=== PATIENT | female | born 1955 | race Caucasian/White ===

== ENCOUNTER → 2016-05-22 | Outpatient (REF) | payer OTHER ==
[~2016-05-22] MED LIST: ADV250INH INH; ALBU17IN INH; ALBU83IN INH; ASPI325T PO; ATOR1TAB18 PO; BUSP5TA PO; CLOP75TA2 PO; CYCL10TA PO; LISI10TA4 PO; METO25TAB PO; NEXI40CA PO; NITR4TASL SL; PIRO10CA2 PO; PREM0.3T2 PO; PROA1AER INH; RANI150T PO; SPIR1CAP IN; TRIL135C6 PO
[2016-05-22 17:39] LABS: ALBUMIN 3.7 GM/DL (3.2-5.2); ALBUMIN/GLOBULIN RATIO 1.32 (1.00-1.93); ALKALINE PHOSPHATASE 71 U/L (45-117); ALT/SGPT 17 U/L (12-78); ANION GAP 8 MEQ/L (8-16); AST/SGOT 19 U/L (15-37); BILIRUBIN,TOTAL 0.3 MG/DL (0.2-1.0); BLOOD UREA NITROGEN 13 MG/DL (7-18); CALCIUM LEVEL 8.9 MG/DL (8.8-10.2); CARBON DIOXIDE LEVEL 27 MEQ/L (21-32); CHLORIDE LEVEL 107 MEQ/L (98-107); CHOLESTEROL LEVEL 117 MG/DL (<200); CREATININE FOR GFR 0.77 MG/DL (0.55-1.02); GLOMERULAR FILTRATION RATE > 60.0 (>45); GLUCOSE, FASTING 121 MG/DL (80-110); POTASSIUM SERUM 4.2 MEQ/L (3.5-5.1); SODIUM LEVEL 142 MEQ/L (136-145); TOTAL PROTEIN 6.5 GM/DL (6.4-8.2); TRIGLYCERIDES LEVEL 165 MG/DL (<150)
== END ==
LOC: M SFHCLACO 10:30
PROVIDERS: ATTEND Physician Assistant
DX: I10 Essential (primary) hypertension (principal); E11.9 Type 2 diabetes mellitus without complications; E78.2 Mixed hyperlipidemia

== ENCOUNTER 2016-09-10 16:37 | Emergency (ER) | payer OTHER ==
[~2016-09-10] VITALS: Ht 154.9 cm; Wt 69.8 kg
[~2016-09-10 16:37] MED LIST changes: -ATOR1TAB18 PO; +ATOR80TA59 PO; -PROA1AER INH; +PROAAER10 INH
[2016-09-10] MEDS ORDERED: LIDOCAINE 1% MDV 20ML VIAL SC ONE (18:00)
[2016-09-10 18:48] VITALS: BP 144/71
[2016-09-10] MEDS ORDERED: BACT800T5 PO (18:58)
== END 2016-09-10 19:17 | disposition home or self-care (01) ==
LOC: M ED 16:37
DX: L72.3 Sebaceous cyst (principal); Z72.0 Tobacco use

== ENCOUNTER → 2016-11-22 | Outpatient (REF) | payer OTHER ==
[~2016-11-22] MED LIST changes: +BACT800T5 PO
[2016-11-22 15:19] LABS: ALBUMIN 3.3 GM/DL (3.2-5.2); ALKALINE PHOSPHATASE 79 U/L (45-117); ALT/SGPT 20 U/L (12-78); ANION GAP 4 MEQ/L (8-16); AST/SGOT 19 U/L (15-37); BILIRUBIN,TOTAL 0.3 MG/DL (0.2-1.0); BLOOD UREA NITROGEN 9 MG/DL (7-18); CALCIUM LEVEL 8.5 MG/DL (8.8-10.2); CARBON DIOXIDE LEVEL 30 MEQ/L (21-32); CHLORIDE LEVEL 107 MEQ/L (98-107); CHOLESTEROL LEVEL 113 MG/DL (<200); CREATININE FOR GFR 0.71 MG/DL (0.55-1.02); GLOMERULAR FILTRATION RATE > 60.0 (>45); GLUCOSE, FASTING 149 MG/DL (80-110); POTASSIUM SERUM 4.1 MEQ/L (3.5-5.1); SODIUM LEVEL 141 MEQ/L (136-145); TOTAL PROTEIN 6.6 GM/DL (6.4-8.2); TRIGLYCERIDES LEVEL 158 MG/DL (<150)
== END ==
LOC: M SFHCLACO 09:43
PROVIDERS: ATTEND Physician Assistant
DX: E78.2 Mixed hyperlipidemia (principal); I10 Essential (primary) hypertension; E11.9 Type 2 diabetes mellitus without complications

== ENCOUNTER → 2017-08-08 | Outpatient (REF) | payer OTHER ==
[2017-08-08 15:02] LABS: ESTIMATED AVERAGE GLUCOSE 137 MG/DL (60-110); HEMOGLOBIN A1c 6.4 %
[2017-08-08 15:07] LABS: ALBUMIN 3.7 GM/DL (3.2-5.2); ALBUMIN/GLOBULIN RATIO 1.19 (1.00-1.93); ALKALINE PHOSPHATASE 67 U/L (45-117); ALT/SGPT 19 U/L (12-78); ANION GAP 8 MEQ/L (8-16); AST/SGOT 18 U/L (7-37); BILIRUBIN,TOTAL 0.5 MG/DL (0.2-1.0); BLOOD UREA NITROGEN 11 MG/DL (7-18); CALCIUM LEVEL 8.9 MG/DL (8.8-10.2); CARBON DIOXIDE LEVEL 28 MEQ/L (21-32); CHLORIDE LEVEL 107 MEQ/L (98-107); CHOLESTEROL LEVEL 113 MG/DL (<200); CREATININE FOR GFR 0.83 MG/DL (0.55-1.30); GLOMERULAR FILTRATION RATE > 60.0 (>45); GLUCOSE, FASTING 137 MG/DL (70-100); HDL CHOLESTEROL 25 MG/DL (>40); LDL CHOLESTEROL 51.4 MG/DL (<100); NON-HDL-C 88 MG/DL; POTASSIUM SERUM 4.2 MEQ/L (3.5-5.1); SODIUM LEVEL 143 MEQ/L (136-145); TOTAL PROTEIN 6.8 GM/DL (6.4-8.2); TRIGLYCERIDES LEVEL 183 MG/DL (<150)
== END ==
LOC: M SFHCLACO 10:00
DX: I10 Essential (primary) hypertension (principal); E78.2 Mixed hyperlipidemia; E11.9 Type 2 diabetes mellitus without complications
CPT/HCPCS: 80053

== ENCOUNTER → 2018-06-04 | Outpatient (REF) | payer OTHER ==
[~2018-06-04] MED LIST changes: +ASPI-1 PO; -ASPI325T PO; +METO1TAB63 PO; -METO25TAB PO
[2018-06-04 15:05] LABS: ALBUMIN 3.6 GM/DL (3.2-5.2); ALT/SGPT 17 U/L (12-78); BILIRUBIN,TOTAL 0.7 MG/DL (0.2-1.0); BLOOD UREA NITROGEN 13 MG/DL (7-18); CALCIUM LEVEL 8.6 MG/DL (8.8-10.2); CARBON DIOXIDE LEVEL 22 MEQ/L (21-32); CHLORIDE LEVEL 105 MEQ/L (98-107); CHOLESTEROL LEVEL 92 MG/DL (<200); CREATININE FOR GFR 0.79 MG/DL (0.55-1.30); GLOMERULAR FILTRATION RATE > 60.0 (>45); GLUCOSE, FASTING 108 MG/DL (70-100); HDL CHOLESTEROL 25 MG/DL (>40); LDL CHOLESTEROL 34 MG/DL (<100); NON-HDL-C 67 MG/DL; POTASSIUM SERUM 4.5 MEQ/L (3.5-5.1); SODIUM LEVEL 138 MEQ/L (136-145); TOTAL PROTEIN 6.7 GM/DL (6.4-8.2); TRIGLYCERIDES LEVEL 165 MG/DL (<150)
== END ==
LOC: M SFHCADAM 09:37
PROVIDERS: ATTEND Physician Assistant
DX: I10 Essential (primary) hypertension (principal); E78.2 Mixed hyperlipidemia; E11.9 Type 2 diabetes mellitus without complications

== ENCOUNTER 2018-07-06 19:51 | Inpatient (IN) | payer OTHER ==
[~2018-07-06] VITALS: Ht 152.4 cm; Wt 66.4 kg
[2018-07-06 20:30] LABS: BASO # 0.1 10^3/uL (0.0-0.2); BASO % 0.6 % (0.0-1.0); EOS # 0.1 10^3/uL (0.0-0.50); EOS % 0.6 % (0.0-3.0); HEMATOCRIT 30.3 % (36.0-47.0); HEMOGLOBIN 8.2 g/dl (12.0-15.5); LYMPH # 0.9 10^3/uL (1.5-4.5); LYMPH % 7.7 % (24.0-44.0); MEAN CORPUSCULAR HEMOGLOBIN 18.3 pg (27.0-33.0); MEAN CORPUSCULAR HGB CONC 27.1 g/dl (32.0-36.5); MEAN CORPUSCULAR VOLUME 67.5 fl (80.0-96.0); MONO # 1.4 10^3/uL (0.0-0.8); MONO % 12.1 % (0.0-5.0); NEUTROPHILS # 8.8 10^3/uL (1.8-7.7); NEUTROPHILS % 78.6 % (36.0-66.0); PLATELET COUNT, AUTOMATED 256 10^3/uL (150-450); RED BLOOD COUNT 4.49 10^6/uL (4.00-5.40); VENOUS BASE EXCESS -3.5 (-2.0-2.0); VENOUS HCO3 23.2 MEQ/L (23.0-27.0); VENOUS O2 SATURATION 69.3 % (60.0-80.0); VENOUS PARTIAL PRESSURE CO2 50.1 mmHg (38.0-50.0); VENOUS PARTIAL PRESSURE O2 42.7 mmHg (30.0-50.0); VENOUS PH 7.284 UNITS (7.330-7.430); VENOUS STANDARD HCO3 21.1 MEQ/L; VENOUS TOTAL CO2 24.8 MEQ/L (24.0-28.0); WHITE BLOOD COUNT 11.2 10^3/uL (4.0-10.0)
--- NOTE | 2018-07-06 20:45 | REP ---
Clinical: Cough and dyspnea. Comparison: 07/29/2014. Findings: Mediastinum and cardiac silhouette are normal. Lung hernandez demonstrate chronic changes and superimposed mild bronchitis cannot be excluded. No focal consolidation. No effusion. No pneumothorax. Skeletal structures stable. Impression: Chronic-appearing interstitial changes. Differential diagnosis cannot definitively exclude a mild bronchitis. Electronically Signed by Hao Graham MD 07/06/2018 08:37 P
[2018-07-06 21:00] LABS: ALT/SGPT 23 U/L (12-78); BLOOD UREA NITROGEN 9 MG/DL (7-18); CALCIUM LEVEL 8.1 MG/DL (8.8-10.2); CARBON DIOXIDE LEVEL 27 MEQ/L (21-32); CHLORIDE LEVEL 110 MEQ/L (98-107); CREATININE FOR GFR 0.74 MG/DL (0.55-1.30); GLOMERULAR FILTRATION RATE > 60.0 (>45); GLUCOSE, FASTING 101 MG/DL (70-100); SODIUM LEVEL 142 MEQ/L (136-145)
[2018-07-06] MEDS: busPIRone 5 MG TAB PO SCH (21:00)
[2018-07-06] MEDS: IPRATROPIUM 0.5MG/ALBUTEROL 2.5MG INH SOL UD 3ML (DUONEB)(J7620) NEB SCH ×3 (21:00→21:40)
[2018-07-06] MEDS ORDERED: methylPREDNISolone INJ 125 MG/2 ML VIAL (J2930) IV ONE (21:00)
[2018-07-06 21:01] LABS: ALBUMIN 3.5 GM/DL (3.2-5.2); BILIRUBIN,DIRECT 0.2 MG/DL (0.0-0.2); BILIRUBIN,TOTAL 0.5 MG/DL (0.2-1.0); CPK CREATINE PHOSPHOKINASE 217 U/L (26-192); MB/CK RELATIVE INDEX 1.66 (< OR =4); NT-PRO BNP 140 PG/ML (<125); THYROID STIMULATING HORMONE 0.789 uIU/ML (0.358-3.740); THYROXINE (T4) 12.4 UG/DL (4.5-12.0); TOTAL PROTEIN 6.8 GM/DL (6.4-8.2); TROPONIN I < 0.02 NG/ML (< 0.10)
[2018-07-06] MEDS ORDERED: ISOVUE-370 76% 100ML VIAL (Q9967) As Ordered ONE (21:48)
[2018-07-06] MEDS ORDERED: ACETAMINOPHEN TAB 650MG DOSE (2X325MG) PO ONE (22:15)
--- NOTE | 2018-07-06 22:48 | REPVR ---
EXAM: CT Angiography Chest With Contrast EXAM DATE/TIME: 07/06/2018 10:01 PM CLINICAL HISTORY: 63 years old, female; Signs and symptoms; Shortness of breath; Additional info: SOB, chest pain TECHNIQUE: Imaging protocol: Axial computed tomographic angiography images of the chest with intravenous contrast using CT angiography protocol. Coronal and sagittal reformatted images were created and reviewed. 3D rendering: MIP reconstructed images were created and reviewed. Radiation optimization: All CT scans at this facility use at least one of these dose optimization techniques: automated exposure control; mA and/or kV adjustment per patient size (includes targeted exams where dose is matched to clinical indication); or iterative reconstruction. Contrast material: ISOVUE 370; Contrast volume: 75 ml; Contrast route: IV; COMPARISON: CT Chest with contrast 07/29/2014 5:01 AM FINDINGS: Pulmonary arteries: The main pulmonary artery measures 24 mm. No pulmonary embolism is identified. Aorta: The ascending thoracic aorta measures 33 mm. Lungs: Slight interstitial prominence and minimal patchy bilateral pulmonary infiltrates. Pleural space: Normal. No pneumothorax. No pleural effusion. Heart: Normal. No cardiomegaly. No pericardial effusion. Liver: Anterior hepatic cyst measuring 18 mm with Hounsfield measurement of 4 which is similar to the prior study. Lymph nodes: Mediastinal lymph nodes which are upper normal. Bones/joints: Unremarkable. No acute fracture. Soft tissues: Unremarkable. IMPRESSION: 1. Slight interstitial prominence which is similar to the prior study of 07/29/2014 with minimal patchy bilateral pulmonary infiltrates which are new. 2. Otherwise negative CTA chest. No interval pulmonary embolism is identified. Electronically signed by: Leonel Rivera On 07/06/2018 22:48:04 PM
[2018-07-07] MEDS ORDERED: cefTRIAXone SOD 1 GM in D5W MINI-BAG PLUS 50 ML IV ONE ×2
[2018-07-07] MEDS ORDERED: ACET-683 PO (01:13)
[2018-07-07] MEDS ORDERED: FENO134C PO (01:13)
[2018-07-07] MEDS ORDERED: NAPR500T6 PO (01:13)
[2018-07-07] MEDS ORDERED: OMEP-221 PO (01:13)
[2018-07-07] MEDS ORDERED: NORC1TAB7 PO (01:13)
[2018-07-07] MEDS ORDERED: FISH1000 PO (01:13)
[2018-07-07] MEDS ORDERED: METO25TA4 PO (01:16)
[2018-07-07] MEDS ORDERED: IPRATROPIUM 0.5MG/ALBUTEROL 2.5MG INH SOL UD 3ML (DUONEB)(J7620) NEB PRN (02:00)
[2018-07-07] MEDS ORDERED: AZITHROMYCIN 250 MG TAB PO ONE (02:00)
[2018-07-07 03:10] VITALS: BP 142/80
[2018-07-07] MEDS: FENOFIBRATE 145 MG TAB (TRICOR) PO SCH ×2 (03:30→20:22)
[2018-07-07] MEDS: ATORVASTATIN 20 MG TAB PO SCH ×2 (03:30→20:21)
[2018-07-07] MEDS: CLOPIDOGREL 75 MG TAB PO SCH ×2 (03:31→20:22)
[2018-07-07] MEDS: CYCLOBENZAPRINE 10 MG TAB PO SCH ×2 (03:32→20:22)
[2018-07-07] MEDS: LISINOPRIL 10 MG TAB PO SCH ×2 (03:32→20:23)
[2018-07-07] MEDS: METOPROLOL TART 25 MG TABLET PO SCH ×2 (03:33→20:23)
[2018-07-07] MEDS: ASPIRIN 325 MG TAB PO SCH ×2 (03:43→20:21)
[2018-07-07] MEDS: BUDESONIDE 0.5 MG/2 ML INHALATION SUSPENSION INH SCH ×3 (03:43→19:27)
[2018-07-07] MEDS: ALBUTEROL SULFATE 2.5 MG/0.5 ML INH NEB SOLN NEB SCH ×4 (03:43→19:27)
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
[2018-07-07 05:03] LABS: BASO % 0.3 % (0.0-1.0); HEMATOCRIT 28.7 % (36.0-47.0); HEMOGLOBIN 7.9 g/dl (12.0-15.5); LYMPH # 0.4 10^3/uL (1.5-4.5); LYMPH % 4.4 % (24.0-44.0); MEAN CORPUSCULAR HEMOGLOBIN 18.6 pg (27.0-33.0); MEAN CORPUSCULAR HGB CONC 27.5 g/dl (32.0-36.5); MEAN CORPUSCULAR VOLUME 67.5 fl (80.0-96.0); MONO # 0.2 10^3/uL (0.0-0.8); MONO % 2.1 % (0.0-5.0); NEUTROPHILS # 8.7 10^3/uL (1.8-7.7); NEUTROPHILS % 92.6 % (36.0-66.0); PLATELET COUNT, AUTOMATED 240 10^3/uL (150-450); RED BLOOD COUNT 4.25 10^6/uL (4.00-5.40); WHITE BLOOD COUNT 9.4 10^3/uL (4.0-10.0)
[2018-07-07 05:18] LABS: BLOOD UREA NITROGEN 12 MG/DL (7-18); CARBON DIOXIDE LEVEL 26 MEQ/L (21-32); CHLORIDE LEVEL 111 MEQ/L (98-107); GLOMERULAR FILTRATION RATE > 60.0 (>45); GLUCOSE, FASTING 172 MG/DL (70-100); POTASSIUM SERUM 4.2 MEQ/L (3.5-5.1); SODIUM LEVEL 142 MEQ/L (136-145)
[2018-07-07 05:23] LABS: CPK CREATINE PHOSPHOKINASE 163 U/L (26-192); MB/CK RELATIVE INDEX 1.78 (< OR =4); TROPONIN I < 0.02 NG/ML (< 0.10)
[2018-07-07] MEDS: methylPREDNISolone INJ 40 MG/1 ML VIAL (J2920) IV SCH ×4 (05:52→23:40)
[2018-07-07 07:31] VITALS: BP 101/57
[2018-07-07 07:32] LABS: FERRITIN 5 NG/ML (8-252); IRON (FE) 10 UG/DL (50-170); PERCENT SATURATION 2.3 % (13.2-45.0); TOTAL IRON BINDING CAPACITY 430 UG/DL (250-450); TOTAL PROTEIN 6.5 GM/DL (6.4-8.2)
[2018-07-07] MEDS: NICOTINE 14 MG/24 HR TRANSDERMAL TD SCH ×2 (08:20→12:53)
[2018-07-07] MEDS: OMEPRAZOLE 20 MG CAP PO SCH (08:20)
[2018-07-07] MEDS: busPIRone 5 MG TAB PO SCH ×2 (08:20→20:21)
[2018-07-07] MEDS: ENOXAPARIN 40 MG/0.4 ML SYRINGE (J1650) SC SCH (08:39)
[2018-07-07] MEDS: TIOTROPIUM INHALER/CAPSULE (SPIRIVA) INH SCH (08:48)
[2018-07-07 09:18] LABS: VITAMIN B12 LEVEL 344 PG/ML (247-911)
[2018-07-07 09:19] LABS: FOLATE 3.6 NG/ML (>5.4)
[2018-07-07 11:30] VITALS: BP 136/60
[2018-07-07] MEDS: NORCO, ANEXSIA 5/325MG TABLET (HYDROcodone/ACETAMINOPHEN) PO PRN (12:17)
[2018-07-07 14:00] VITALS: BP 127/63
--- NOTE | 2018-07-07 17:20 | IPNPDOC ---
Text Note Date of Service The patient was seen on 07/07/18. NOTE Subjective: Ms. Henry is seen on bedside rounds this morning. She is still a little SOB, she sounds wheezy on exam. She denies blood in stool, or black stool, no coughing or vomiting up blood. No bleeding from vagina. She has nonproductive cough but no CP or palpitations. No fevers, or n/v reported. ROS: 12 point ROS reviewed and negative except for what is in subjective portion above Physical Exam: VS: See below General: 63 y/o female appearing older than her stated age, in NAD, conversant, speaking in full sentences but a little SOB HEENT: no jvd, moist mucus membranes, EOMI Cardio: normal s1 and s2., no murmurs, rubs or gallops Resp: diminished throughout, diffuse crackles and wheezing, mild end exp wheezing, no rales Abdomen: nabsx4, no hepatosplenomegaly, no masses,no pain to palpation, no distension, no rebound guarding or ridgity 1. Acute respiratory failure with hypoxia -I will give her a nebulizer treatment right now, Duoneb. This could be secondar y from acute bronchitis secondary to human rhinovirus, she is on ceftriaxone and azithromycin right now, her CXR demonstrated possible bronchitis, CTA showed slight interstitial prominence and minimal patchy b/l pulmonary infiltrates that are new, without PE. She has remained afebrile and her leukocytosis has improved. Her flu test was negative, blood cultures and sputum cultures pending. Will also send procalcitonin. Could also be component of COPD exacerbation, c/w albuterol nebulizers, budesonide nebs and spiriva, will decrease solumederol dose in AM. C/w O2 supplementation as needed. 2. Anemia -iron studies suggest iron deficiency, do not suspect current bleed, B12 and folate wnl, SPEP pending -Currently 7.9, holding transfusion for now, will recheck in AM 3. Hx of CAD with AMI and stent placement in 2006 -C/w statin, asa, plavix, beta-paradise -negative troponin so far 4. Hyperlipidemia c/w statin & fenofibrate 5. Chronic low back pain -c/w norco as per home dosage 6. Hypertension l-c/w isinopril, metoprolol 7. Anxiety, depression c/w buspirone 8. GERD c/w omeprazole Disposition: Will plan on decreasing steroids tomorrow and seeing how her respiratory status does. Continue to monitor H/H, may have to transfuse in AM. VS,Fishbone, I+O VS, Fishbone, I+O Laboratory Tests 07/06/18 20:14 Red Blood Count 4.49, Mean Corpuscular Volume 67.5 L, Mean Corpuscular Hemoglobin 18.3 L, Mean Corpuscular Hemoglobin Concent 27.1 L, Red Cell Distribution Width 21.7 H, Neutrophils (%) (Auto) 78.6 H, Lymphocytes (%) (Auto) 7.7 L, Monocytes (%) (Auto) 12.1 H, Eosinophils (%) (Auto) 0.6, Basophils (%) (Auto) 0.6, Neutrophils # (Auto) 8.8 H, Lymphocytes # (Auto) 0.9 L, Monocytes # (Auto) 1.4 H, Eosinophils # (Auto) 0.1, Basophils # (Auto) 0.1 07/07/18 04:43 Red Blood Count 4.25, Mean Corpuscular Volume 67.5 L, Mean Corpuscular Hemoglobin 18.6 L, Mean Corpuscular Hemoglobin Concent 27.5 L, Red Cell Distribution Width 21.5 H, Neutrophils (%) (Auto) 92.6 H, Lymphocytes (%) (Auto) 4.4 L, Monocytes (%) (Auto) 2.1, Eosinophils (%) (Auto) 0.0, Basophils (%) (Auto) 0.3, Neutrophils # (Auto) 8.7 H, Lymphocytes # (Auto) 0.4 L, Monocytes # (Auto) 0.2, Eosinophils # (Auto) 0.0, Basophils # (Auto) 0.0, Calcium Level 9.0 Vital Signs Date Time Temp Pulse Resp B/P (MAP) Pulse Ox O2 Delivery O2 Flow Rate FiO2 07/07/18 12:47 18 07/07/18 11:27 1.0 07/07/18 10:30 92 07/07/18 07:31 98.1 66 101/57 (72) 07/07/18 02:51 Nasal Cannula I&O- Last 24 Hours up to 6 AM 07/07/18 06:00 Intake Total 50 ml Output Total 0 ml Balance 50 ml GME ATTESTATION GME ATTESTATION My faculty preceptor for this patient encounter was physically present during the encounter and was fully available. All aspects of the patient interview, examination, medical decision making process, and medical care plan development were reviewed and approved by the faculty preceptor. The faculty preceptor is aware and concurs with the plan as stated in the body of this note and will attest to such by his/her cosignature. ATTENDING NOTE I saw and evaluated the patient. I agree with the findings and plan of care as documented in the resident's note JASSON LOWERY DO July 07, 2018 17:20 DEDRA GRANGER MD July 11, 2018 15:01
[2018-07-07] MEDS ORDERED: ACETAMINOPHEN 325 MG TAB PO ONE (17:45)
[2018-07-07] MEDS ORDERED: IPRATROPIUM 0.5MG/ALBUTEROL 2.5MG INH SOL UD 3ML (DUONEB)(J7620) NEB ONE (17:45)
[2018-07-07] MEDS: AZITHROMYCIN 250 MG TAB PO SCH (20:21)
[2018-07-07] MEDS: cefTRIAXone SOD 1 GM in D5W MINI-BAG PLUS 50 ML IV SCH (20:31)
--- NOTE | 2018-07-07 20:52 | ECGEPIP ---
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
[2018-07-07 22:00] VITALS: BP 116/63
[2018-07-08] MEDS: ALBUTEROL SULFATE 2.5 MG/0.5 ML INH NEB SOLN NEB SCH ×4 (01:45→19:42)
[2018-07-08] MEDS: methylPREDNISolone INJ 40 MG/1 ML VIAL (J2920) IV SCH ×3 (05:45→17:18)
[2018-07-08 06:00] VITALS: BP 109/60
[2018-07-08 06:10] LABS: BASO % 0.1 % (0.0-1.0); HEMATOCRIT 28.7 % (36.0-47.0); HEMOGLOBIN 7.7 g/dl (12.0-15.5); LYMPH # 0.6 10^3/uL (1.5-4.5); MEAN CORPUSCULAR HEMOGLOBIN 18.2 pg (27.0-33.0); MEAN CORPUSCULAR HGB CONC 26.8 g/dl (32.0-36.5); MONO # 0.4 10^3/uL (0.0-0.8); MONO % 3.6 % (0.0-5.0); NEUTROPHILS # 11.2 10^3/uL (1.8-7.7); NEUTROPHILS % 90.4 % (36.0-66.0); PLATELET COUNT, AUTOMATED 247 10^3/uL (150-450); RED BLOOD COUNT 4.22 10^6/uL (4.00-5.40); WHITE BLOOD COUNT 12.4 10^3/uL (4.0-10.0)
[2018-07-08 06:34] LABS: BLOOD UREA NITROGEN 11 MG/DL (7-18); CALCIUM LEVEL 8.7 MG/DL (8.8-10.2); CARBON DIOXIDE LEVEL 28 MEQ/L (21-32); CHLORIDE LEVEL 105 MEQ/L (98-107); GLOMERULAR FILTRATION RATE > 60.0 (>45); GLUCOSE, FASTING 159 MG/DL (70-100); POTASSIUM SERUM 4.5 MEQ/L (3.5-5.1); SODIUM LEVEL 141 MEQ/L (136-145)
[2018-07-08] MEDS: TIOTROPIUM INHALER/CAPSULE (SPIRIVA) INH SCH (07:50)
[2018-07-08] MEDS: BUDESONIDE 0.5 MG/2 ML INHALATION SUSPENSION INH SCH ×2 (07:50→19:42)
[2018-07-08] MEDS: ENOXAPARIN 40 MG/0.4 ML SYRINGE (J1650) SC SCH (08:09)
[2018-07-08] MEDS: OMEPRAZOLE 20 MG CAP PO SCH (08:09)
[2018-07-08] MEDS: busPIRone 5 MG TAB PO SCH ×2 (08:09→21:15)
[2018-07-08] MEDS: NICOTINE 14 MG/24 HR TRANSDERMAL TD SCH (08:10)
[2018-07-08] MEDS: NORCO, ANEXSIA 5/325MG TABLET (HYDROcodone/ACETAMINOPHEN) PO PRN (10:35)
[2018-07-08 13:23] LABS: FOLATE 3.6 NG/ML (>5.4); PERCENT SATURATION 2.9 % (13.2-45.0)
--- NOTE | 2018-07-08 13:28 | IPNPDOC ---
Text Note Date of Service The patient was seen on 07/08/18. NOTE Subjective: Ms. Henry is seen on bedside rounds this morning. She is still a little SOB, she is also hungry. She denies blood in stool, or black stool, no coughing or vomiting up blood. No bleeding from vagina. She has nonproductive cough but no CP or palpitations. ROS: 12 point ROS reviewed and negative except for what is in subjective portion above Physical Exam: VS: See below General: 63 y/o female appearing older than her stated age, in NAD, conversant, speaking in full sentences HEENT: no jvd, moist mucus membranes, EOMI Cardio: normal s1 and s2., no murmurs, rubs or gallops Resp: diminished throughout, no crackles, mild end exp wheezing, no rales Abdomen: nabsx4, no hepatosplenomegaly, no masses,no pain to palpation, no distension, no rebound guarding or ridgity 1. Acute respiratory failure with hypoxia -her breathing is better this morning on physical exam. Her presenting SOB is likely secondary from acute bronchitis secondary to human rhinovirus, she is on ceftriaxone and azithromycin right now, her CXR demonstrated possible bronchitis, CTA showed slight interstitial prominence and minimal patchy b/l pulmonary infiltrates that are new, without PE. She has remained afebrile and her leukocytosis has bumped today so we will re-order CBC around noon. Her flu test was negative, blood cultures and sputum cultures negative so far. Pending procalcitonin. Could also be component of COPD exacerbation, she still smokes cigarettes at home which she does not want help quitting and states she will do it on her own, c/w albuterol nebulizers, budesonide nebs and spiriva, will decrease solumederol dose in AM. C/w O2 supplementation as needed. 2. Anemia -will transfuse two units pRBC today, hg now 7.7, unclear etiology at this point, iron studies repeated, FOBT pending and peripheral smear -Original iron studies suggested iron deficiency, B12 and folate wnl, SPEP pending -repeat h/h one hour after second tranfusion planned 3. Hx of CAD with AMI and stent placement in 2006 -C/w statin, asa, plavix, beta-paradise -negative troponin so far 4. Hyperlipidemia c/w statin & fenofibrate 5. Chronic low back pain -c/w norco as per home dosage 6. Hypertension l-c/w isinopril, metoprolol 7. Anxiety, depression c/w buspirone 8. GERD c/w omeprazole Disposition: We will transfuse 2 units pRBC and try to determine why her hg is dropping. C/w current steroid treatment and plan to de-escalate tomorrow. VS,Fishbone, I+O VS, Fishbone, I+O Laboratory Tests 07/08/18 05:30 Red Blood Count 4.22, Mean Corpuscular Volume 68.0 L, Mean Corpuscular Hemoglobin 18.2 L, Mean Corpuscular Hemoglobin Concent 26.8 L, Red Cell Distribution Width 21.7 H, Neutrophils (%) (Auto) 90.4 H, Lymphocytes (%) (Auto) 5.0 L, Monocytes (%) (Auto) 3.6, Eosinophils (%) (Auto) 0.0, Basophils (%) (Auto) 0.1, Neutrophils # (Auto) 11.2 H, Lymphocytes # (Auto) 0.6 L, Monocytes # (Auto) 0.4, Eosinophils # (Auto) 0.0, Basophils # (Auto) 0.0, Calcium Level 8.7 L Vital Signs Date Time Temp Pulse Resp B/P (MAP) Pulse Ox O2 Delivery O2 Flow Rate FiO2 07/08/18 11:05 18 07/08/18 09:00 1.0 07/08/18 07:54 75 07/08/18 06:00 97.2 109/60 (76) 95 07/07/18 02:51 Nasal Cannula I&O- Last 24 Hours up to 6 AM 07/08/18 06:00 Intake Total 2490 ml Output Total 200 ml Balance 2290 ml GME ATTESTATION GME ATTESTATION My faculty preceptor for this patient encounter was physically present during the encounter and was fully available. All aspects of the patient interview, examination, medical decision making process, and medical care plan development were reviewed and approved by the faculty preceptor. The faculty preceptor is aware and concurs with the plan as stated in the body of this note and will attest to such by his/her cosignature. ATTENDING NOTE I saw and evaluated the patient. I agree with the findings and plan of care as documented in the resident's note JASSON LOWERY DO July 08, 2018 13:28 DEDRA GRANGER MD July 11, 2018 15:04
[2018-07-08 14:08] LABS: ALBUMIN 3.62 GM/DL (3.29-5.55); ALBUMIN % 55.7 % (55.8-66.1); ALPHA-1-GLOBULINS 0.46 GM/DL (0.17-0.41); ALPHA-2-GLOBULINS % 11.8 % (7.1-11.8); BETA-1-GLOBULINS % 8.8 % (4.7-7.2); BETA-2-GLOBULINS % 5.6 % (3.2-6.5); GAMMA GLOBULIN % 11.1 % (11.1-18.8)
[2018-07-08 14:09] LABS: ALPHA-2-GLOBULINS 0.77 GM/DL (0.42-0.99); BETA-1-GLOBULINS 0.57 GM/DL (0.28-0.60); BETA-2-GLOBULINS 0.36 GM/DL (0.19-0.55); GAMMA GLOBULINS 0.72 GM/DL (0.65-1.58)
[2018-07-08 15:51] VITALS: BP 128/69
[2018-07-08] MEDS: CLOPIDOGREL 75 MG TAB PO SCH (21:15)
[2018-07-08] MEDS: FENOFIBRATE 145 MG TAB (TRICOR) PO SCH (21:15)
[2018-07-08] MEDS: CYCLOBENZAPRINE 10 MG TAB PO SCH (21:17)
[2018-07-08] MEDS: LISINOPRIL 10 MG TAB PO SCH (21:17)
[2018-07-08] MEDS: ATORVASTATIN 20 MG TAB PO SCH (21:18)
[2018-07-08] MEDS: AZITHROMYCIN 250 MG TAB PO SCH (21:18)
[2018-07-08] MEDS: METOPROLOL TART 25 MG TABLET PO SCH (21:18)
[2018-07-08] MEDS: ASPIRIN 325 MG TAB PO SCH (21:18)
[2018-07-08] MEDS: cefTRIAXone SOD 1 GM in D5W MINI-BAG PLUS 50 ML IV SCH (21:19)
[2018-07-08 22:00] VITALS: BP 124/70
[2018-07-09] MEDS ORDERED: DEXTROMETHORPHAN 60MG/10ML SUSP 90ML BTL(DELSYM) PO PRN (00:15)
[2018-07-09] MEDS: methylPREDNISolone INJ 40 MG/1 ML VIAL (J2920) IV SCH ×4 (00:35→18:29)
[2018-07-09] MEDS: ALBUTEROL SULFATE 2.5 MG/0.5 ML INH NEB SOLN NEB SCH ×4 (02:00→17:49)
[2018-07-09 06:00] VITALS: BP 135/71
[2018-07-09 07:09] LABS: BASO % 0.1 % (0.0-1.0); HEMATOCRIT 30.4 % (36.0-47.0); HEMOGLOBIN 8.5 g/dl (12.0-15.5); LYMPH % 6.9 % (24.0-44.0); MEAN CORPUSCULAR HEMOGLOBIN 19.1 pg (27.0-33.0); MEAN CORPUSCULAR VOLUME 68.5 fl (80.0-96.0); MONO # 0.4 10^3/uL (0.0-0.8); MONO % 3.2 % (0.0-5.0); NEUTROPHILS # 12.1 10^3/uL (1.8-7.7); PLATELET COUNT, AUTOMATED 242 10^3/uL (150-450); RED BLOOD COUNT 4.44 10^6/uL (4.00-5.40); WHITE BLOOD COUNT 13.8 10^3/uL (4.0-10.0)
[2018-07-09] MEDS: BUDESONIDE 0.5 MG/2 ML INHALATION SUSPENSION INH SCH ×2 (07:21→17:49)
[2018-07-09] MEDS: TIOTROPIUM INHALER/CAPSULE (SPIRIVA) INH SCH (07:21)
[2018-07-09 07:30] LABS: BLOOD UREA NITROGEN 14 MG/DL (7-18); CALCIUM LEVEL 8.5 MG/DL (8.8-10.2); CARBON DIOXIDE LEVEL 32 MEQ/L (21-32); CHLORIDE LEVEL 102 MEQ/L (98-107); CREATININE FOR GFR 0.72 MG/DL (0.55-1.30); GLOMERULAR FILTRATION RATE > 60.0 (>45); GLUCOSE, FASTING 139 MG/DL (70-100); POTASSIUM SERUM 4.1 MEQ/L (3.5-5.1); SODIUM LEVEL 139 MEQ/L (136-145)
[2018-07-09] MEDS: busPIRone 5 MG TAB PO SCH ×2 (10:01→20:27)
[2018-07-09] MEDS: OMEPRAZOLE 20 MG CAP PO SCH (10:01)
[2018-07-09] MEDS: NICOTINE 14 MG/24 HR TRANSDERMAL TD SCH (10:01)
[2018-07-09] MEDS: ENOXAPARIN 40 MG/0.4 ML SYRINGE (J1650) SC SCH ×2 (10:02→10:19)
[2018-07-09] MEDS ORDERED: ACETAMINOPHEN TAB 650MG DOSE (2X325MG) PO ONE (10:30)
[2018-07-09] MEDS ORDERED: guaiFENesin ER 600 MG TAB PO ONE (11:45)
[2018-07-09 14:00] VITALS: BP 134/73
--- NOTE | 2018-07-09 14:19 | IPNPDOC ---
Text Note Date of Service The patient was seen on 07/09/18. NOTE Subjective: Ms. Henry is seen on bedside rounds this morning. She is still a little SOB, but definitely feels improved from yesterday. It is mostly when she ambulates now. She is walking around her room, and sometimes on the floor. She continues to deny blood in stool, or black stool, no coughing or vomiting up blood. No bleeding from vagina. She has nonproductive cough still but this is also improving, but denies CP or palpitations. ROS: 12 point ROS reviewed and negative except for what is in subjective portion above Physical Exam: VS: See below General: 63 y/o female appearing older than her stated age, in NAD, conversant, speaking in full sentences HEENT: no Jvd, moist mucus membranes, EOMI Cardio: normal s1 and s2., no murmurs, rubs or gallops Resp: diminished throughout, no crackles, mild end exp wheezing, no rales Abdomen: nabsx4, no hepatosplenomegaly, no masses,no pain to palpation, no distension, no rebound guarding or ridgity 1. Acute respiratory failure with hypoxia -her breathing is better this morning on physical exam, but she still does not think she is at baseline. Her presenting SOB is likely secondary from acute bronchitis secondary to human rhinovirus, she is on ceftriaxone and azithromycin right now which we will continue, her CXR demonstrated possible bronchitis, CTA showed slight interstitial prominence and minimal patchy b/l pulmonary infiltrates that are new, without PE. She has remained afebrile and her leukocytosis has bumped a bit again, continue to monitor, could be secondary to steroid use. She is afebrile. Her flu test was negative, blood cultures and sputum cultures showed possible yeast like organism, we can add fluconazole to her regime now. Pending procalcitonin. Could also be component of COPD exacerbation, she still smokes cigarettes at home which she does not want help quitting and states she will do it on her own, she thinks her nicotine patches help her cravings. She can c/w albuterol nebulizers, budesonide nebs and spiriva, will wean solumederol dose in AM. C/w O2 supplementation as needed. 2. Anemia -Her FOBT was positive, we have consulted GI to rule out GI source of bleeding, appreciate their help. Dr Us to see patient. She received one unit pRBC because after first unit was transfused yesterday she began to have some chest pain and difficulty breathing, thought to be secondary to transfusion reaction and she refused second unit of blood. Her hg is improved today but that is expected after one unit of pRBC yesterday to 8.5. -iron studies repeated demonstrated Iron def anemia, her peripheral smear was essentially normal 3. Hx of CAD with AMI and stent placement in 2006 -C/w statin, asa, plavix, beta-paradise -negative troponin so far 4. Hyperlipidemia c/w statin & fenofibrate 5. Chronic low back pain -c/w norco as per home dosage 6. Hypertension l-c/w isinopril, metoprolol 7. Anxiety, depression c/w buspirone 8. GERD c/w omeprazole Disposition: Pending recommendations from GI for rule out of GI blood loss. VS,Fishbone, I+O VS, Fishbone, I+O Laboratory Tests 07/09/18 06:36 Red Blood Count 4.44, Mean Corpuscular Volume 68.5 L, Mean Corpuscular Hemoglobin 19.1 L, Mean Corpuscular Hemoglobin Concent 28.0 L, Red Cell Distribution Width 22.6 H, Neutrophils (%) (Auto) 88.0 H, Lymphocytes (%) (Auto) 6.9 L, Monocytes (%) (Auto) 3.2, Eosinophils (%) (Auto) 0.0, Basophils (%) (Auto) 0.1, Neutrophils # (Auto) 12.1 H, Lymphocytes # (Auto) 1.0 L, Monocytes # (Auto) 0.4, Eosinophils # (Auto) 0.0, Basophils # (Auto) 0.0, Calcium Level 8.5 L Vital Signs Date Time Temp Pulse Resp B/P (MAP) Pulse Ox O2 Delivery O2 Flow Rate FiO2 07/09/18 10:23 127 85 07/09/18 10:06 1.0 07/09/18 06:00 98.3 19 135/71 (92) 07/07/18 02:51 Nasal Cannula I&O- Last 24 Hours up to 6 AM 07/09/18 06:00 Intake Total 1150 ml Output Total 400 ml Balance 750 ml GME ATTESTATION GME ATTESTATION My faculty preceptor for this patient encounter was physically present during the encounter and was fully available. All aspects of the patient interview, examination, medical decision making process, and medical care plan development were reviewed and approved by the faculty preceptor. The faculty preceptor is aw are and concurs with the plan as stated in the body of this note and will attest to such by his/her cosignature. ATTENDING NOTE I saw and evaluated the patient. I agree with the findings and plan of care as documented in the resident's note Patient non compliant routinely threatening to leave AMA, has been reasoned into staying after lengthy bedside discussions JASSON LOWERY DO July 09, 2018 14:19 DEDRA GRANGER MD Jul 12, 2018 12:23
[2018-07-09] MEDS ORDERED: BENZONATATE 100 MG CAP PO ONE (16:00)
[2018-07-09] MEDS: FLUCONAZOLE 50MG TABLET PO SCH (16:39)
[2018-07-09] MEDS: AZITHROMYCIN 250 MG TAB PO SCH (20:26)
[2018-07-09] MEDS: LISINOPRIL 10 MG TAB PO SCH (20:26)
[2018-07-09] MEDS: FENOFIBRATE 145 MG TAB (TRICOR) PO SCH (20:27)
[2018-07-09] MEDS: ATORVASTATIN 20 MG TAB PO SCH (20:27)
[2018-07-09] MEDS: CYCLOBENZAPRINE 10 MG TAB PO SCH (20:27)
[2018-07-09] MEDS: METOPROLOL TART 25 MG TABLET PO SCH (20:27)
[2018-07-09] MEDS: ASPIRIN 325 MG TAB PO SCH (20:27)
[2018-07-09] MEDS: CLOPIDOGREL 75 MG TAB PO SCH (20:27)
[2018-07-09] MEDS: cefTRIAXone SOD 1 GM in D5W MINI-BAG PLUS 50 ML IV SCH (20:28)
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
[2018-07-09 22:00] VITALS: BP 124/73
[2018-07-10] MEDS: methylPREDNISolone INJ 40 MG/1 ML VIAL (J2920) IV SCH ×4 (00:03→19:25)
[2018-07-10] MEDS: ALBUTEROL SULFATE 2.5 MG/0.5 ML INH NEB SOLN NEB SCH ×4 (01:56→19:53)
[2018-07-10 06:00] VITALS: BP 130/90
[2018-07-10] MEDS ORDERED: GOLYTELY SOLN 4000 ML BTL PO ONE ×2 (06:00→09:30)
[2018-07-10 06:06] LABS: HEMATOCRIT 27.1 % (36.0-47.0); HEMOGLOBIN 7.6 g/dl (12.0-15.5); MEAN CORPUSCULAR HEMOGLOBIN 18.7 pg (27.0-33.0); MEAN CORPUSCULAR VOLUME 66.6 fl (80.0-96.0); PLATELET COUNT, AUTOMATED 236 10^3/uL (150-450); RED BLOOD COUNT 4.07 10^6/uL (4.00-5.40); WHITE BLOOD COUNT 11.3 10^3/uL (4.0-10.0)
[2018-07-10 06:30] LABS: BLOOD UREA NITROGEN 16 MG/DL (7-18); CALCIUM LEVEL 8.1 MG/DL (8.8-10.2); CARBON DIOXIDE LEVEL 33 MEQ/L (21-32); CHLORIDE LEVEL 104 MEQ/L (98-107); CREATININE FOR GFR 0.72 MG/DL (0.55-1.30); GLOMERULAR FILTRATION RATE > 60.0 (>45); GLUCOSE, FASTING 141 MG/DL (70-100); POTASSIUM SERUM 3.9 MEQ/L (3.5-5.1); SODIUM LEVEL 143 MEQ/L (136-145)
[2018-07-10 06:52] LABS: LYMPHOCYTES 5 % (16-52); METAMYELOCYTES 1 % (0-0); MONOCYTES 7 % (0-8); NEUTROPHILS 87 % (35-75)
[2018-07-10 06:53] LABS: ANISOCYTOSIS 4+; PLATELET ESTIMATE NORMAL (NORMAL)
[2018-07-10 06:54] LABS: HYPOCHROMASIA 2+; MICROCYTOSIS 3+; OVALOCYTES 1+
[2018-07-10] MEDS: TIOTROPIUM INHALER/CAPSULE (SPIRIVA) INH SCH (07:25)
[2018-07-10] MEDS: BUDESONIDE 0.5 MG/2 ML INHALATION SUSPENSION INH SCH ×2 (07:26→19:53)
[2018-07-10] MEDS: busPIRone 5 MG TAB PO SCH ×2 (08:13→20:27)
[2018-07-10] MEDS: OMEPRAZOLE 20 MG CAP PO SCH (08:13)
[2018-07-10] MEDS: FLUCONAZOLE 50MG TABLET PO SCH (08:13)
[2018-07-10] MEDS: NICOTINE 14 MG/24 HR TRANSDERMAL TD SCH (08:14)
[2018-07-10] MEDS: ENOXAPARIN 40 MG/0.4 ML SYRINGE (J1650) SC SCH (08:14)
[2018-07-10 14:00] VITALS: BP 152/62
[2018-07-10] MEDS ORDERED: diphenhydrAMINE 50 MG CAP PO STA (15:09)
--- NOTE | 2018-07-10 18:35 | IPNPDOC ---
Text Note Date of Service The patient was seen on 07/10/18. NOTE Subjective: Ms. Henry is seen on bedside rounds this morning. Her SOB is much improved, she is just concerned about getting a colonoscopy, she doesn't think she can drink the prep and actually had refused to have it done earlier this morning. Her family is at bedside. After a long discussion with her and her family, she decided to try to perform the prep and proceed with the colonoscopy. She continues to deny blood in stool, or black stool, no coughing or vomiting up blo od. No bleeding from vagina. Her cough is improved today. She denies CP or palpitations. ROS: 12 point ROS reviewed and negative except for what is in subjective portion above Physical Exam: VS: See below General: 63 y/o female appearing older than her stated age, in NAD, conversant, speaking in full sentences HEENT: no Jvd, moist mucus membranes, EOMI Cardio: normal s1 and s2., no murmurs, rubs or gallops Resp: diminished throughout, no crackles, mild end exp wheezing, no rales Abdomen: nabsx4, no hepatosplenomegaly, no masses,no pain to palpation, no distension, no rebound guarding or ridgity 1. Acute respiratory failure with hypoxia -her breathing is much better this morning on physical exam, she thinks she is close to her baseline. Her presenting SOB is likely secondary from acute bronchitis secondary to human rhinovirus, s/p ceftriaxone and azithromycin, her CXR demonstrated possible bronchitis, CTA showed slight interstitial prominence and minimal patchy b/l pulmonary infiltrates that are new, without PE. She has remained afebrile and her leukocytosis has bumped a bit again, continue to monitor, could be secondary to steroid use. She is afebrile. Her flu test was negative, blood cultures and sputum cultures showed possible yeast like organism, she can c/w fluconazole. She has a normal procalcitonin. Could also be component of COPD exacerbation, she still smokes cigarettes at home which she does not want help quitting and states she will do it on her own, c/w nicotine patches. She can c/w albuterol nebulizers, budesonide nebs and spiriva, will wean solumederol dose in AM. C/w O2 supplementation as needed. 2. Anemia -Her FOBT was positive, we have consulted GI to rule out GI source of bleeding, appreciate their help. Dr Us to see patient. The patient is willing to peform the prep and c/w colonoscopy. Her h/h is low again today ( Hg 7.6), we will transfuse 1 unit pRBC. -iron studies repeated demonstrated Iron def anemia, her peripheral smear was essentially normal - B12 wnl, folate low, will plan to supplement 3. Hx of CAD with AMI and stent placement in 2006 -C/w statin, asa, plavix, beta-paradise -negative troponin so far 4. Hyperlipidemia c/w statin & fenofibrate 5. Chronic low back pain -c/w norco as per home dosage 6. Hypertension l-c/w isinopril, metoprolol 7. Anxiety, depression c/w buspirone 8. GERD c/w omeprazole Disposition: Pending colonoscopy to rule out GI source of bleeding. VS,Fishbone, I+O VS, Fishbone, I+O Laboratory Tests 07/10/18 05:27 Red Blood Count 4.07, Mean Corpuscular Volume 66.6 L, Mean Corpuscular Hemoglobin 18.7 L, Mean Corpuscular Hemoglobin Concent 28.0 L, Red Cell Distribution Width 22.8 H, Calcium Level 8.1 L Vital Signs Date Time Temp Pulse Resp B/P (MAP) Pulse Ox O2 Delivery O2 Flow Rate FiO2 07/10/18 15:37 95 1.0 07/10/18 14:00 97.5 55 16 152/62 (92) 07/07/18 02:51 Nasal Cannula I&O- Last 24 Hours up to 6 AM 07/10/18 06:00 Intake Total 1880 ml Output Total 950 ml Balance 930 ml GME ATTESTATION GME ATTESTATION My faculty preceptor for this patient encounter was physically present during the encounter and was fully available. All aspects of the patient interview, examination, medical decision making process, and medical care plan development were reviewed and approved by the faculty preceptor. The faculty preceptor is aware and concurs with the plan as stated in the body of this note and will attest to such by his/her cosignature. ATTENDING NOTE I saw and evaluated the patient. I agree with the findings and plan of care as documented in the resident's note JASSON LOWERY DO July 10, 2018 18:35 DEDRA RGANGER MD Jul 12, 2018 12:32
[2018-07-10 20:26] VITALS: BP 170/80
[2018-07-10] MEDS: guaiFENesin ER 600 MG TAB PO SCH (20:26)
[2018-07-10] MEDS: FENOFIBRATE 145 MG TAB (TRICOR) PO SCH (20:26)
[2018-07-10] MEDS: LISINOPRIL 10 MG TAB PO SCH (20:26)
[2018-07-10] MEDS: ATORVASTATIN 20 MG TAB PO SCH (20:26)
[2018-07-10] MEDS: CYCLOBENZAPRINE 10 MG TAB PO SCH (20:27)
[2018-07-10] MEDS: CLOPIDOGREL 75 MG TAB PO SCH (20:27)
[2018-07-10] MEDS: ASPIRIN 325 MG TAB PO SCH (20:27)
[2018-07-10] MEDS: METOPROLOL TART 25 MG TABLET PO SCH (20:27)
[2018-07-10 22:00] VITALS: BP 192/86
[2018-07-11] MEDS: ALBUTEROL SULFATE 2.5 MG/0.5 ML INH NEB SOLN NEB SCH ×3 (00:45→13:53)
[2018-07-11] MEDS: methylPREDNISolone INJ 40 MG/1 ML VIAL (J2920) IV SCH ×2 (01:24→05:27)
[2018-07-11 06:00] VITALS: BP 165/79
[2018-07-11 06:30] LABS: HEMATOCRIT 36.2 % (36.0-47.0); MEAN CORPUSCULAR HEMOGLOBIN 20.9 pg (27.0-33.0); MEAN CORPUSCULAR HGB CONC 29.6 g/dl (32.0-36.5); MEAN CORPUSCULAR VOLUME 70.6 fl (80.0-96.0); PLATELET COUNT, AUTOMATED 208 10^3/uL (150-450); RED BLOOD COUNT 5.13 10^6/uL (4.00-5.40); WHITE BLOOD COUNT 9.3 10^3/uL (4.0-10.0)
[2018-07-11 06:31] LABS: HEMOGLOBIN 10.7 g/dl (12.0-15.5)
[2018-07-11 06:46] LABS: BLOOD UREA NITROGEN 19 MG/DL (7-18); CALCIUM LEVEL 8.6 MG/DL (8.8-10.2); CARBON DIOXIDE LEVEL 35 MEQ/L (21-32); CHLORIDE LEVEL 101 MEQ/L (98-107); CREATININE FOR GFR 0.76 MG/DL (0.55-1.30); GLOMERULAR FILTRATION RATE > 60.0 (>45); GLUCOSE, FASTING 152 MG/DL (70-100); SODIUM LEVEL 141 MEQ/L (136-145)
[2018-07-11 06:57] LABS: LYMPHOCYTES 8 % (16-52); MONOCYTES 5 % (0-8); NEUTROPHILS 87 % (35-75)
[2018-07-11 06:58] LABS: PLATELET ESTIMATE NORMAL (NORMAL)
[2018-07-11 06:59] LABS: ANISOCYTOSIS 3+; HYPOCHROMASIA 2+
[2018-07-11 07:00] LABS: POIKILOCYTOSIS 2+; SCHISTOCYTES 1+
[2018-07-11 07:01] LABS: BURR CELLS 1+; OVALOCYTES 1+
[2018-07-11] MEDS: TIOTROPIUM INHALER/CAPSULE (SPIRIVA) INH SCH (07:14)
[2018-07-11] MEDS: BUDESONIDE 0.5 MG/2 ML INHALATION SUSPENSION INH SCH (07:14)
[2018-07-11] MEDS: ENOXAPARIN 40 MG/0.4 ML SYRINGE (J1650) SC SCH (09:00)
[2018-07-11] MEDS: busPIRone 5 MG TAB PO SCH (09:40)
[2018-07-11] MEDS: FLUCONAZOLE 50MG TABLET PO SCH (09:40)
[2018-07-11] MEDS: OMEPRAZOLE 20 MG CAP PO SCH (09:40)
[2018-07-11] MEDS: NICOTINE 14 MG/24 HR TRANSDERMAL TD SCH (09:41)
[2018-07-11] MEDS: guaiFENesin ER 600 MG TAB PO SCH (09:41)
[2018-07-11] MEDS ORDERED: LIDOCAINE 2% INJ 100 MG/5 ML SDV (FOR ANES.) As Ordered ONE (12:17)
[2018-07-11] MEDS ORDERED: PROPOFOL 200 MG/20 ML VIAL As Ordered ONE ×2 (12:17→14:33)
--- NOTE | 2018-07-11 12:22 | IPNPDOC ---
Text Note Date of Service The patient was seen on 07/11/18. NOTE Subjective: Ms. Henry is seen on bedside rounds this morning. Her respiratory status is back to her baseline she tells me. She is sometimes a little tight before a breathing treatment. She says she completed her bowel prep, she is waiting for upper endoscopy and colonoscopy with GI today. She continues to actively deny blood in stool, or black stool, no coughing or vomiting up blood. No bleeding from vagina. She denies CP or palpitations. ROS: 12 point ROS reviewed and negative except for what is in subjective portion above Physical Exam: VS: See below General: 63 y/o female appearing older than her stated age, in NAD, conversant, speaking in full sentences HEENT: no Jvd, moist mucus membranes, EOMI Cardio: normal s1 and s2., no murmurs, rubs or gallops Resp: diminished throughout, no crackles, mild end exp wheezing, no rales Abdomen: nabsx4, no hepatosplenomegaly, no masses,no pain to palpation, no distension, no rebound guarding or ridgity Extremities- no cyanosis, mottling or edema appreciated 1. Acute respiratory failure with hypoxia -She thinks her breathing and respiratory status are at baseline today. She feels pretty well and wants to go home, but is awaiting her procedures. It is likely that her presenting SOB was from acute bronchitis secondary to human rhinovirus, s/p ceftriaxone and azithromycin. . Her CXR demonstrated possible bronchitis, CTA showed slight interstitial prominence and minimal patchy b/l pulmonary infiltrates that are new, without PE. She has remained afebrile and her leukocytosis has resolved. She is afebrile. Her flu test was negative, blood cultures and sputum cultures showed possible yeast like organism, she can c/w fluconazole. She has a normal procalcitonin. Could also be component of COPD exacerbation, she still smokes cigarettes at home which she does not want help quitting and states she will do it on her own, c/w nicotine patches. She can c/w albuterol nebulizers, budesonide nebs and spiriva, will wean solumederol to BID dosing today. C/w O2 supplementation as needed. 2. Anemia -Her FOBT was positive, we have consulted GI to rule out GI source of bleeding, appreciate their help. Dr Us to perform colonoscopy and endoscopy today. Her h/h is improved today 10.7/36.2 , s/p 2 units pRBC this stay -iron studies repeated demonstrated Iron def anemia, her peripheral smear was essentially normal - B12 normal, folate is low, will supplement 3. Hx of CAD with AMI and stent placement in 2006 -C/w statin, asa, plavix, beta-paradise -negative troponin so far 4. Hyperlipidemia c/w statin & fenofibrate 5. Chronic low back pain -c/w norco as per home dosage 6. Hypertension l-c/w isinopril, metoprolol 7. Anxiety, depression c/w buspirone 8. GERD c/w omeprazole Disposition: Pending colonoscopy/endoscopy today to rule out GI source of bleeding. VS,Fishbone, I+O VS, Fishbone, I+O Laboratory Tests 07/11/18 06:00 Red Blood Count 5.13, Mean Corpuscular Volume 70.6 L, Mean Corpuscular Hemoglobin 20.9 L, Mean Corpuscular Hemoglobin Concent 29.6 L, Red Cell Distribution Width 24.3 H, Calcium Level 8.6 L Vital Signs Date Time Temp Pulse Resp B/P (MAP) Pulse Ox O2 Delivery O2 Flow Rate FiO2 07/11/18 09:00 1.0 07/11/18 06:00 97.0 53 20 165/79 (107) 96 07/07/18 02:51 Nasal Cannula I&O- Last 24 Hours up to 6 AM 07/11/18 06:00 Intake Total 455 ml Output Total 3000 ml Balance -2545 ml GME ATTESTATION GME ATTESTATION My faculty preceptor for this patient encounter was physically present during the encounter and was fully available. All aspects of the patient interview, examination, medical decision making process, and medical care plan development were reviewed and approved by the faculty preceptor. The faculty preceptor is aware and concurs with the plan as stated in the body of this note and will attest to such by his/her cosignature. ATTENDING NOTE I saw and evaluated the patient. I agree with the findings and plan of care as documented in the resident's note JASSON LOWERY DO July 11, 2018 12:22 DEDRA GRANGER MD Jul 12, 2018 12:34
[2018-07-11] MEDS ORDERED: ALBUTEROL SULFATE 2.5 MG/0.5 ML INH NEB SOLN As Ordered ONE (13:42)
[2018-07-11] MEDS ORDERED: ALBUTEROL SULFATE 2.5 MG/0.5 ML INH NEB SOLN INH ONE (14:00)
--- NOTE | 2018-07-11 14:24 | ROOR ---
Patient Name: Elaine Alegre Procedure Date: 07/11/2018 2:06 PM Date of : 1955 Age: 63 Room: [facility] Gender: Female Note Status: Finalized Procedure: Upper Endoscopy + Biopsies Indications: Iron deficiency anemia Providers: Jarod Us MD Referring MD: 2. Inpatient 2. Inpatient Requesting Provider: Medicines: Monitored Anesthesia Care Complications: No immediate complications. Procedure: Pre-Anesthesia Assessment: - The heart rate, respiratory rate, oxygen saturations, blood pressure, adequacy of pulmonary ventilation, and response to care were monitored throughout the procedure. The Endoscope was introduced through the mouth, and advanced to the second part of duodenum. The upper GI endoscopy was accomplished without difficulty. The patient tolerated the procedure well. Findings: The Z-line was regular and was found 40 cm from the incisors. Localized minimal inflammation characterized by erosions and erythema was found in the gastric antrum. Biopsies were taken with a cold forceps for Helicobacter pylori testing. Multiple small angioectasias without bleeding were found in the second portion of the duodenum. Biopsies for histology were taken with a cold forceps in the first portion of the duodenum for evaluation of celiac disease. The exam was otherwise without abnormality. Impression: - Z-line regular, 40 cm from the incisors. - Mucosal changes suspicious for gastritis. Biopsied. - Multiple non-bleeding angioectasias in the duodenum. - The examination was otherwise normal. - Biopsies were taken with a cold forceps for evaluation of celiac disease. - The examination was otherwise normal. Recommendation: - Patient has a contact number available for emergencies. The signs and symptoms of potential delayed complications were discussed with the patient. Return to normal activities tomorrow. Written discharge instructions were provided to the patient. - Discharge patient to home. - Continue present medications. - Await pathology results. - Telephone GI clinic for pathology results in 1 week. - Return to referring physician. - The findings and recommendations were discussed with the patient's family. Jarod Us MD Jarod Us MD 07/11/2018 2:24:31 PM Electronically signed by Jarod Us MD Number of Addenda: 0 Note Initiated On: 07/11/2018 2:06 PM Estimated Blood Loss: Estimated blood loss: none.
--- NOTE | 2018-07-11 14:45 | ROOR ---
Patient Name: Elaine Alegre Procedure Date: 07/11/2018 2:07 PM Date of : 1955 Age: 63 Room: [facility] Gender: Female Note Status: Finalized Procedure: Total Colonoscopy to Cecum + Biopsy Polypectomy Indications: Iron deficiency anemia Providers: Jarod Us MD Referring MD: 2. Inpatient 2. Inpatient Requesting Provider: Medicines: Monitored Anesthesia Care Complications: No immediate complications. Procedure: Pre-Anesthesia Assessment: - The heart rate, respiratory rate, oxygen saturations, blood pressure, adequacy of pulmonary ventilation, and response to care were monitored throughout the procedure. The Colonoscope was introduced through the anus and advanced to the cecum, identified by appendiceal orifice and ileocecal valve. The colonoscopy was performed without difficulty. The patient tolerated the procedure well. The quality of the bowel preparation was good. Findings: The perianal and digital rectal examinations were normal. Non-bleeding internal hemorrhoids were found during retroflexion. The hemorrhoids were small and Grade I (internal hemorrhoids that do not prolapse). Multiple small and large-mouthed diverticula were found in the recto-sigmoid colon, sigmoid colon and descending colon. A small polyp was found at 60 cm proximal to the anus. The polyp was sessile. The polyp was removed with a jumbo cold forceps. Resection and retrieval were complete. The exam was otherwise without abnormality on direct and retroflexion views. Impression: - Non-bleeding internal hemorrhoids. - Diverticulosis in the recto-sigmoid colon, in the sigmoid colon and in the descending colon. - One small polyp at 60 cm proximal to the anus, removed with a jumbo cold forceps. Resected and retrieved. - The examination was otherwise normal on direct and retroflexion views. - The exam was otherwise normal to the cecum. Recommendation: - Patient has a contact number available for emergencies. The signs and symptoms of potential delayed complications were discussed with the patient. Return to normal activities tomorrow. Written discharge instructions were provided to the patient. - High fiber diet. - Return patient to [facility] for ongoing care. - Continue present medications. - Await pathology results. - Telephone GI clinic for pathology results in 1 week. - Repeat colonoscopy in 10 years for surveillance. - Return to referring physician. - The findings and recommendations were discussed with the patient's family. Jarod Us MD Jarod Us MD 07/11/2018 2:44:37 PM Electronically signed by Jarod Us MD Number of Addenda: 0 Note Initiated On: 07/11/2018 2:07 PM Estimated Blood Loss: Estimated blood loss: none.
[2018-07-11 14:52] VITALS: BP 120/83
[2018-07-11] MEDS ORDERED: NICO14PA TD (15:59)
[2018-07-11] MEDS ORDERED: PRED10TA2 PO (15:59)
[2018-07-11] MEDS ORDERED: DIFL50TA PO (16:00)
[2018-07-11] MEDS ORDERED: methylPREDNISolone INJ 40 MG/1 ML VIAL (J2920) IV SCH (17:00)
--- NOTE | 2018-07-11 17:52 | DS.PDOC ---
Discharge Summary General Date of Admission July 07, 2018 at 01:51 Date of Discharge 07/11/2018 Discharge Summary DISCHARGE DIAGNOSIS:Acute Hypoxic respiratory failure SECONDARY DIAGNOSIS: 1.Human rhinovirus 2. Symptomatic anemia 3. GI bleed 4. COPD 5. Coronary artery disease 6. Dyslipidemia 7. Anxiety depression 8. Gastroesophageal reflux disease 9. Hypertension 10. Chronic low back pain 11. Tobacco abuse 12. Medical noncompliance PROCEDURES PERFORMED DURING STAY: Colonoscopy and endoscopy.. CONSULTANTS:GI HOSPITAL COURSE: Patient is a 63-year-old female is actively smoking who presented with shortness of breath. She has a history of COPD with no O2 requirement no home steroids. She did have oxygen need and was empirically started on treatment with antibiotics and IV steroids and nebulizer treatments with good improvement. [facility] PCR panel did return positive for human rhinovirus and antibiotics were discontinued. She continued to improve but was noted to have a dropping hemoglobin and occult stool for blood was positive she did have iron deficiency anemia on her iron studies. She did receive 2 units of PRBCs during her stay as well as an endoscopy and colonoscopy that was positive for some nonbleeding hemorrhoids gastritis. She was recommended to remain on a PPI started a high fiber diet. Throughout her course she threatened to leave AGAINST MEDICAL ADVICE daily with noncompliant with therapies and took significant convincing by both nursing staff medical providers and her family. Hospital to receive stabilization of her medical conditions. At this time she is improved and demanding discharge home. She has no further oxygen requirement and was able to ambulate on room air without significant desaturation. DISCHARGE MEDICATIONS: Please see below. ALLERGIES: Please see below. For physical exam and full problem list please see progress note from today's date DISPOSITION: Home to self-care. DISCHARGE CONDITION: Improved and Stable. FOLLOW UP: PCP within 7 days, GI within 1 month ACTIVITY: As prior to admission. DIET: [High-fiber 2 g sodium TIME SPENT ON DISCHARGE: 50 minutes Vital Signs/I&Os Vital Signs Date Time Temp Pulse Resp B/P (MAP) Pulse Ox O2 Delivery O2 Flow Rate FiO2 07/11/18 14:52 97.6 80 18 120/83 (95) 95 1 07/07/18 02:51 Nasal Cannula I&O- Last 24 Hours up to 6 AM 07/11/18 06:00 Intake Total 455 ml Output Total 3000 ml Balance -2545 ml Laboratory Data Labs 24H Laboratory Tests 2 07/11/18 06:00: Immature Granulocyte % (Auto) , Nucleated Red Blood Cells % (auto) 0.6H, Neutrophils 87H, Lymphocytes (Manual) 8L, Monocytes (Manual) 5, Platelet Estimate NORMAL, Hypochromasia 2+, Poikilocytosis 2+, Anisocytosis 3+, Ovalocytes 1+, Florecita Cells 1+, Crenated Cell , Schistocytes 1+, Anion Gap 5L, Glomerular Filtration Rate > 60.0, Blood Urea Nitrogen 19H, Creatinine 0.76, Sodium Level 141, Potassium Level 4.0, Chloride Level 101, Carbon Dioxide Level 35H, Calcium Level 8.6L CBC/BMP Laboratory Tests 07/11/18 06:00 Red Blood Count 5.13, Mean Corpuscular Volume 70.6 L, Mean Corpuscular Hemoglobi n 20.9 L, Mean Corpuscular Hemoglobin Concent 29.6 L, Red Cell Distribution Width 24.3 H, Calcium Level 8.6 L Microbiology Microbiology 07/06/18 Blood Culture - Preliminary, Resulted No Growth after 72 hours. All specime... 07/06/18 Blood Culture - Preliminary, Resulted No Growth after 72 hours. All specime... 07/09/18 Stool Occult Blood ([facility]) - Final, Complete 07/07/18 Respiratory Virus Panel (PCR) ([facility]UAN) - Final, Complete Human Rhinovirus/Enterovirus 07/07/18 Gram Stain - Final, Resulted 07/07/18 Sputum Culture - Preliminary, Resulted Streptococcus Pneumoniae Yeast Like Organism Discharge Medications Scheduled Aspirin (Aspirin) 325 Mg Tab, 325 MG PO QPM, (Reported) Atorvastatin Calcium (Atorvastatin Calcium) 80 Mg Tab, 80 MG PO QHS, (Reported) Buspirone HCl (Buspirone HCl) 5 Mg Tab, 10 MG PO BID, (Reported) Clopidogrel Bisulfate (Clopidogrel) 75 Mg Tab, 75 MG PO QPM, (Reported) Cyclobenzaprine HCl (Cyclobenzaprine HCl) 10 Mg Tab, 10 MG PO QHS, (Reported) Estrogen,Con/M-Progest Acet (Prempro 0.3 mg-1.5 mg Tablet) 1 Tab Tab, 1 TAB PO QPM, (Reported) Fenofibrate,Micronized (Fenofibrate) 134 Mg Capsule, 134 MG PO QPM, (Reported) Fluconazole (Diflucan) 50 Mg Tablet, 50 MG PO DAILY Lisinopril (Lisinopril) 10 Mg Tab, 10 MG PO QPM, (Reported) Metoprolol Tartrate (Metoprolol Tartrate) 25 Mg Tablet, 25 MG PO QPM, (Reported) Naproxen (Naproxen) 500 Mg Tablet.dr, 500 MG PO QPM, (Reported) Nicotine (Nicotine Patch) 14 Mg Patch.td24, 1 PATCH TD DAILY [place]-3 Fatty Acids/Fish Oil (Fish Oil 1,000 mg Capsule) 1 Each Capsule, 1,000 MG PO QPM, (Reported) Omeprazole (Omeprazole) 40 Mg Capsule.dr, 40 MG PO QPM, (Reported) Prednisone (Prednisone) 10 Mg Tablet, 10 MG PO TAPER Take 4 tabs daily x 3 days, then 3 tabs daily x 3 days, then 2 tabs daily x 3 days, then 1 tab daily x 3 days and stop Scheduled PRN Acetaminophen (Acetaminophen) 500 Mg Tablet, 500 MG PO Q4H PRN for PAIN, (Reported) Albuterol Sulf (Albuterol Sulfate) 2.5 Mg/3 Ml Nebu, 2.5 MG INH Q4H PRN for SOB/WHEEZING, (Reported) Albuterol Sulfate (Proair Hfa) 108 Mcg/Act Aer, 2 PUFF INH Q4H PRN for SOB/WHEEZING, (Reported) Hydrocodone/Acetaminophen ([place] 5-325 Tablet) 1 Each Tablet, 1 TAB PO BID PRN for PAIN, (Reported) Nitroglycerin (Nitrostat) 0.4 Mg Subl, 0.4 MG SL PRN PRN for CHEST PAIN, (Reported) EVERY 5 MINUTES TIMES 3 DOSES IF NEEDED Allergies Coded Allergies: No Known Allergies (Unverified , 07/29/14) DEDRA GRANGER MD July 11, 2018 17:52
[2018-07-11] MEDS ORDERED: FOLIC ACID 1 MG TAB PO SCH (18:00)
== END 2018-07-11 18:00 | disposition home or self-care (01) | DRG 133 ==
LOC: M ED 19:51 → M ED INP 07-07 01:51 → M PCU 07-07 03:14 → M MS5PR 07-07 10:30
PROVIDERS: ADMIT Internal Medicine Nephrology; ATTEND Internal Medicine
PROC: 30233N1 Transfusion of Nonautologous Red Blood Cells into Peripheral Vein, Percutaneous Approach (ICD-10-PCS; 2018-07-08)
PROC: 0DBQ8ZX Excision of Anus, Via Natural or Artificial Opening Endoscopic, Diagnostic (ICD-10-PCS; 2018-07-11)
PROC: 0DB58ZX Excision of Esophagus, Via Natural or Artificial Opening Endoscopic, Diagnostic (ICD-10-PCS; principal; 2018-07-11 14:00)
DX: J96.01 Acute respiratory failure with hypoxia (principal); I50.32 Chronic diastolic (congestive) heart failure; J44.9 Chronic obstructive pulmonary disease, unspecified; K92.2 Gastrointestinal hemorrhage, unspecified; J20.6 Acute bronchitis due to rhinovirus; Z91.19 Patient's noncompliance with other medical treatment and regimen; F17.200 Nicotine dependence, unspecified, uncomplicated; E78.5 Hyperlipidemia, unspecified; I10 Essential (primary) hypertension; F41.9 Anxiety disorder, unspecified; F32.9 Major depressive disorder, single episode, unspecified; I25.10 Atherosclerotic heart disease of native coronary artery without angina pectoris; D64.9 Anemia, unspecified; Z79.52 Long term (current) use of systemic steroids; Z79.899 Other long term (current) drug therapy; K21.9 Gastro-esophageal reflux disease without esophagitis; I25.2 Old myocardial infarction; M79.7 Fibromyalgia; Z95.2 Presence of prosthetic heart valve; K64.8 Other hemorrhoids; K57.30 Diverticulosis of large intestine without perforation or abscess without bleeding; K62.0 Anal polyp

== ENCOUNTER → 2018-08-29 | Outpatient (REF) | payer OTHER ==
[~2018-08-29] MED LIST changes: +ACET-683 PO; +DIFL50TA PO; +FENO134C PO; +FISH1000 PO; +METO25TA4 PO; +NAPR500T6 PO; +NICO14PA TD; +NORC1TAB7 PO; +OMEP-221 PO; +PRED10TA2 PO
[2018-08-29 13:38] LABS: ALBUMIN 3.8 GM/DL (3.2-5.2); ALT/SGPT 20 U/L (12-78); BILIRUBIN,TOTAL 0.6 MG/DL (0.2-1.0); BLOOD UREA NITROGEN 9 MG/DL (7-18); CARBON DIOXIDE LEVEL 30 MEQ/L (21-32); CHLORIDE LEVEL 107 MEQ/L (98-107); CHOLESTEROL LEVEL 115 MG/DL (<200); CHOLESTEROL RISK RATIO 4.259 (<5); CREATININE FOR GFR 0.85 MG/DL (0.55-1.30); GLOMERULAR FILTRATION RATE > 60.0 (>45); GLUCOSE, FASTING 128 MG/DL (70-100); HDL CHOLESTEROL 27 MG/DL (>40); LDL CHOLESTEROL 62 MG/DL (<100); NON-HDL-C 88 MG/DL; POTASSIUM SERUM 4.7 MEQ/L (3.5-5.1); SODIUM LEVEL 141 MEQ/L (136-145); TOTAL PROTEIN 6.6 GM/DL (6.4-8.2); TRIGLYCERIDES LEVEL 132 MG/DL (<150)
[2018-08-29 13:50] LABS: HEMOGLOBIN A1c 6.4 %
== END ==
LOC: M LABDRWAD 12:10
PROVIDERS: ATTEND Physician Assistant
DX: E11.9 Type 2 diabetes mellitus without complications (principal); I10 Essential (primary) hypertension; E78.2 Mixed hyperlipidemia

== ENCOUNTER 2018-11-27 18:41 | Emergency (ER) | payer OTHER ==
[~2018-11-27] VITALS: Ht 152.4 cm; Wt 70.6 kg
[2018-11-27] MEDS ORDERED: METO1TAB87 PO (19:39)
[2018-11-27] MEDS ORDERED: INCR1INH INH (19:39)
[2018-11-27] MEDS ORDERED: ARNU1INH3 PO (19:39)
[2018-11-27] MEDS ORDERED: predniSONE 20 MG TAB PO ONE (19:45)
[2018-11-27] MEDS: IPRATROPIUM 0.5MG/ALBUTEROL 2.5MG INH SOL UD 3ML (DUONEB)(J7620) NEB SCH ×3 (20:16→21:20)
[2018-11-27] MEDS ORDERED: PRED10TA2 PO (21:57)
[2018-11-27] MEDS ORDERED: AZIT500T5 PO (21:58)
[2018-11-27 22:30] VITALS: BP 152/86
--- NOTE | 2018-11-28 03:15 | REP ---
Clinical: Cough . Comparison: 07/06/2018 . Technique: PA and lateral. Findings: The mediastinum and cardiac silhouette are normal. The lung hernandez are clear and without acute consolidation, effusion, or pneumothorax. The skeletal structures are intact and normal. Impression: 1. No acute cardiopulmonary process. Electronically Signed by Hao Graham MD 11/28/2018 03:06 A
--- NOTE | 2018-11-28 19:47 | ECGEPIP ---
[facility] - ED Test Date: 2018-11-27 Pat Name: JAVIER DOLAN Department: Room: - Gender: Female [employer]: JEANETH : 1955 Requested By: Teresa Denise Order Number: [id number] Reading MD: Teresa Denise Measurements Intervals [place] Rate: 78 P: 69 NE: 140 QRS: 55 QRSD: 86 T: 69 QT: 365 QTc: 417 Interpretive Statements SINUS RHYTHM POSSIBLE LEFT ATRIAL ENLARGEMENT POSSIBLE RIGHT VENTRICULAR CONDUCTION DELAY LEFT VENTRICULAR HYPERTROPHY AND ST-T CHANGE CW 07/06/[address] T WAVE CHANGES Electronically Signed on 11-28-2018 19:47:26 EDT by Teresa Denise
== END 2018-11-27 22:39 | disposition home or self-care (01) ==
LOC: M ED 18:41
DX: J44.1 Chronic obstructive pulmonary disease with (acute) exacerbation (principal); I25.10 Atherosclerotic heart disease of native coronary artery without angina pectoris; I25.2 Old myocardial infarction; E11.9 Type 2 diabetes mellitus without complications; I10 Essential (primary) hypertension; E78.5 Hyperlipidemia, unspecified; K21.9 Gastro-esophageal reflux disease without esophagitis; G89.29 Other chronic pain; M54.5 Low back pain; F17.200 Nicotine dependence, unspecified, uncomplicated; Z82.49 Family history of ischemic heart disease and other diseases of the circulatory system; Z79.82 Long term (current) use of aspirin; Z79.890 Hormone replacement therapy; Z79.899 Other long term (current) drug therapy

== ENCOUNTER → 2019-12-22 | Outpatient (REF) | payer OTHER ==
[~2019-12-22] MED LIST changes: +ARNU1INH3 PO; +AZIT500T5 PO; +CYCL-707 PO; -CYCL10TA PO; +INCR1INH INH; +METO1TAB87 PO
[2019-12-22 12:44] LABS: HEMATOCRIT 38.8 % (36.0-47.0); HEMOGLOBIN 10.3 g/dl (12.0-15.5); MEAN CORPUSCULAR HEMOGLOBIN 19.8 pg (27.0-33.0); MEAN CORPUSCULAR HGB CONC 26.5 g/dl (32.0-36.5); MEAN CORPUSCULAR VOLUME 74.5 fl (80.0-96.0); PLATELET COUNT, AUTOMATED 258 10^3/uL (150-450); RED BLOOD COUNT 5.21 10^6/uL (4.00-5.40); WHITE BLOOD COUNT 7.8 10^3/uL (4.0-10.0)
[2019-12-22 13:19] LABS: HEMOGLOBIN A1c 6.6 %
[2019-12-22 13:28] LABS: ALBUMIN 3.7 GM/DL (3.2-5.2); ALT/SGPT 23 U/L (12-78); BILIRUBIN,TOTAL 0.5 MG/DL (0.2-1.0); BLOOD UREA NITROGEN 13 MG/DL (7-18); CALCIUM LEVEL 9.1 MG/DL (8.8-10.2); CARBON DIOXIDE LEVEL 29 MEQ/L (21-32); CHLORIDE LEVEL 107 MEQ/L (98-107); CHOLESTEROL LEVEL 97 MG/DL (<200); CHOLESTEROL RISK RATIO 4.619 (<5); CREATININE FOR GFR 0.72 MG/DL (0.55-1.30); GLOMERULAR FILTRATION RATE > 60.0 (>45); GLUCOSE, FASTING 88 MG/DL (70-100); HDL CHOLESTEROL 21 MG/DL (>40); LDL CHOLESTEROL 45 MG/DL (<100); NON-HDL-C 76 MG/DL; POTASSIUM SERUM 4.6 MEQ/L (3.5-5.1); SODIUM LEVEL 140 MEQ/L (136-145); TOTAL PROTEIN 6.3 GM/DL (6.4-8.2); TRIGLYCERIDES LEVEL 156 MG/DL (<150)
== END ==
LOC: M SFHCADAM 11:26
PROVIDERS: ATTEND Physician Assistant
DX: I10 Essential (primary) hypertension (principal); E78.2 Mixed hyperlipidemia; E11.9 Type 2 diabetes mellitus without complications

== ENCOUNTER → 2020-06-21 | Outpatient (REF) | payer MEDICARE, MEDICAID ==
[~2020-06-21] MED LIST changes: +LISI10TA22 PO; -LISI10TA4 PO
[2020-06-21 13:42] LABS: ALBUMIN 3.7 GM/DL (3.2-5.2); ALT/SGPT 17 U/L (12-78); BILIRUBIN,TOTAL 0.5 MG/DL (0.2-1.0); BLOOD UREA NITROGEN 13 MG/DL (7-18); CALCIUM LEVEL 9.1 MG/DL (8.8-10.2); CARBON DIOXIDE LEVEL 29 MEQ/L (21-32); CHLORIDE LEVEL 109 MEQ/L (98-107); CHOLESTEROL LEVEL 116 MG/DL (<200); CHOLESTEROL RISK RATIO 4.296 (<5); CREATININE FOR GFR 0.73 MG/DL (0.55-1.30); GLOMERULAR FILTRATION RATE > 60.0 (>45); GLUCOSE, FASTING 94 MG/DL (70-100); HDL CHOLESTEROL 27 MG/DL (>40); LDL CHOLESTEROL 72 MG/DL (<100); NON-HDL-C 89 MG/DL; POTASSIUM SERUM 4.4 MEQ/L (3.5-5.1); SODIUM LEVEL 142 MEQ/L (136-145); TOTAL PROTEIN 6.4 GM/DL (6.4-8.2); TRIGLYCERIDES LEVEL 84 MG/DL (<150)
[2020-06-21 13:48] LABS: HEMOGLOBIN A1c 6.4 %
== END ==
LOC: M SFHCADAM 11:11
PROVIDERS: ATTEND Physician Assistant
DX: I10 Essential (primary) hypertension (principal); E78.2 Mixed hyperlipidemia; E11.9 Type 2 diabetes mellitus without complications; J44.9 Chronic obstructive pulmonary disease, unspecified
CPT/HCPCS: 80053; 80061; 83036; G0463

== ENCOUNTER → 2020-12-20 | Outpatient (REF) | payer MEDICARE, MEDICAID ==
[2020-12-20 17:01] LABS: ALBUMIN 3.8 GM/DL (3.2-5.2); ALT/SGPT 21 U/L (12-78); BILIRUBIN,TOTAL 0.4 MG/DL (0.2-1.0); BLOOD UREA NITROGEN 14 MG/DL (7-18); CALCIUM LEVEL 9.2 MG/DL (8.8-10.2); CARBON DIOXIDE LEVEL 32 MEQ/L (21-32); CHLORIDE LEVEL 105 MEQ/L (98-107); CHOLESTEROL LEVEL 130 MG/DL (<200); CREATININE FOR GFR 0.77 MG/DL (0.55-1.30); GLOMERULAR FILTRATION RATE > 60.0 (>45); GLUCOSE, FASTING 96 MG/DL (70-100); HDL CHOLESTEROL 25 MG/DL (>40); LDL CHOLESTEROL 72 MG/DL (<100); NON-HDL-C 105 MG/DL; POTASSIUM SERUM 4.2 MEQ/L (3.5-5.1); SODIUM LEVEL 139 MEQ/L (136-145); TOTAL PROTEIN 6.6 GM/DL (6.4-8.2); TRIGLYCERIDES LEVEL 165 MG/DL (<150)
[2020-12-20 18:48] LABS: HEMOGLOBIN A1c 6.6 %
== END ==
LOC: M SFHCADAM 11:31
PROVIDERS: ATTEND Physician Assistant
DX: E78.2 Mixed hyperlipidemia (principal); I10 Essential (primary) hypertension; E11.9 Type 2 diabetes mellitus without complications; Z23 Encounter for immunization
CPT/HCPCS: 80053; 80061; 83036; 90682; G0008; G0463

== ENCOUNTER 2020-12-29 11:49 | Outpatient (CLI) | payer MEDICARE, MEDICAID ==
[~2020-12-29] VITALS: Ht 154.9 cm; Wt 68.0 kg
[~2020-12-29 11:49] MED LIST changes: +ACETAMINOPHEN TAB 650MG DOSE (2X325MG) PO ONE; +ALBUTEROL 90 MCG/ACT 8GM HFA INHALER INH PRN; +ALBUTEROL SULFATE 2.5 MG/0.5 ML INH NEB SOLN INH PRN; +CASIRIVIMAB (REGN10933) 600 MG, IMDEVIMAB (REGN10987) 600 MG in NS 250 ML IV ONE; +EPINEPHrine INJ 1 MG/ML 1ML AMP IM PRN; +NS 1,000 ML IV SCH; +diphenhydrAMINE 50MG/ML VIAL (J1200) IV PRN; +methylPREDNISolone 125MG 2ML VIAL IV PRN
[2020-12-29 12:15] VITALS: BP 145/68
[2020-12-29 12:45] VITALS: BP 139/65
[2020-12-29 13:15] VITALS: BP 147/67
[2020-12-29 14:15] VITALS: BP 143/65
== END 2020-12-29 14:15 | disposition home or self-care (01) ==
LOC: M OPCLI4PR 11:49
PROVIDERS: ATTEND Physician Assistant
DX: U07.1 COVID-19 (principal)

== ENCOUNTER → 2021-09-21 | Outpatient (REF) | payer MEDICARE, MEDICAID ==
[~2021-09-21] MED LIST changes: -ACETAMINOPHEN TAB 650MG DOSE (2X325MG) PO ONE; +ALBU2.5V10 INH; -ALBU83IN INH; -ALBUTEROL 90 MCG/ACT 8GM HFA INHALER INH PRN; -ALBUTEROL SULFATE 2.5 MG/0.5 ML INH NEB SOLN INH PRN; -CASIRIVIMAB (REGN10933) 600 MG, IMDEVIMAB (REGN10987) 600 MG in NS 250 ML IV ONE; -EPINEPHrine INJ 1 MG/ML 1ML AMP IM PRN; -FENO134C PO; +FENO134C16 PO; -NS 1,000 ML IV SCH; -OMEP-221 PO; +OMEP40CA5 PO; -diphenhydrAMINE 50MG/ML VIAL (J1200) IV PRN; -methylPREDNISolone 125MG 2ML VIAL IV PRN
[2021-09-21 14:08] LABS: BASO # 0.1 10^3/uL (0.0-0.2); BASO % 1.1 % (0.0-1.0); EOS # 0.1 10^3/uL (0.0-0.5); EOS % 1.6 % (0.0-3.0); HEMATOCRIT 43.2 % (36.0-47.0); HEMOGLOBIN 13.5 g/dl (12.0-15.5); LYMPH # 1.7 10^3/uL (1.5-5.0); LYMPH % 20.3 % (24.0-44.0); MEAN CORPUSCULAR HGB CONC 31.3 g/dl (32.0-36.5); MEAN CORPUSCULAR VOLUME 92.7 fl (80.0-96.0); MONO # 0.9 10^3/uL (0.0-0.8); MONO % 11.2 % (2.0-8.0); NEUTROPHILS # 5.4 10^3/uL (1.5-8.5); NEUTROPHILS % 65.3 % (36.0-66.0); PLATELET COUNT, AUTOMATED 226 10^3/uL (150-450); RED BLOOD COUNT 4.66 10^6/uL (4.00-5.40); WHITE BLOOD COUNT 8.3 10^3/uL (4.0-10.0)
[2021-09-21 15:17] LABS: ALBUMIN 3.4 GM/DL (3.2-5.2); ALT/SGPT 25 U/L (12-78); BILIRUBIN,TOTAL 0.7 MG/DL (0.2-1.0); BLOOD UREA NITROGEN 10 MG/DL (7-18); CALCIUM LEVEL 8.9 MG/DL (8.8-10.2); CARBON DIOXIDE LEVEL 28 MEQ/L (21-32); CHLORIDE LEVEL 106 MEQ/L (98-107); CHOLESTEROL LEVEL 125 MG/DL (<200); CHOLESTEROL RISK RATIO 4.464 (<5); FREE T4 1.02 NG/DL (0.76-1.46); GLOMERULAR FILTRATION RATE > 60.0 (>45); GLUCOSE, FASTING 117 MG/DL (70-100); HDL CHOLESTEROL 28 MG/DL (>40); LDL CHOLESTEROL 72 MG/DL (<100); NON-HDL-C 97 MG/DL; POTASSIUM SERUM 4.4 MEQ/L (3.5-5.1); SODIUM LEVEL 140 MEQ/L (136-145); TOTAL PROTEIN 6.5 GM/DL (6.4-8.2); TRIGLYCERIDES LEVEL 127 MG/DL (<150)
[2021-09-21 20:26] LABS: HEMOGLOBIN A1c 6.5 %
== END ==
LOC: M SFHCADAM 10:37
PROVIDERS: ATTEND Physician Assistant
DX: I10 Essential (primary) hypertension (principal); E78.2 Mixed hyperlipidemia; E11.65 Type 2 diabetes mellitus with hyperglycemia

== ENCOUNTER → 2022-04-12 | Outpatient (CLI) | payer MEDICARE, MEDICAID ==
[~2022-04-12] MED LIST changes: -FENO134C16 PO; +FENO134C20 PO
== END ==
LOC: M ADAMS 14:05
PROVIDERS: ATTEND Physician Assistant
DX: R91.8 Other nonspecific abnormal finding of lung field (principal); I21.3 ST elevation (STEMI) myocardial infarction of unspecified site

== ENCOUNTER → 2022-04-12 | Outpatient (REF) | payer MEDICARE, MEDICAID ==
[2022-04-12 17:49] LABS: BASO # 0.1 10^3/uL (0.0-0.2); BASO % 1.1 % (0.0-1.0); EOS # 0.1 10^3/uL (0.0-0.5); EOS % 1.5 % (0.0-3.0); HEMATOCRIT 49.6 % (36.0-47.0); HEMOGLOBIN 15.3 g/dl (12.0-15.5); LYMPH # 2.2 10^3/uL (1.5-5.0); LYMPH % 24.1 % (24.0-44.0); MEAN CORPUSCULAR HEMOGLOBIN 28.5 pg (27.0-33.0); MEAN CORPUSCULAR HGB CONC 30.8 g/dl (32.0-36.5); MEAN CORPUSCULAR VOLUME 92.5 fl (80.0-96.0); MONO # 1.3 10^3/uL (0.0-0.8); MONO % 13.8 % (2.0-8.0); NEUTROPHILS # 5.3 10^3/uL (1.5-8.5); NEUTROPHILS % 58.4 % (36.0-66.0); PLATELET COUNT, AUTOMATED 275 10^3/uL (150-450); RED BLOOD COUNT 5.36 10^6/uL (4.00-5.40); WHITE BLOOD COUNT 9.1 10^3/uL (4.0-10.0)
[2022-04-12 17:58] LABS: HEMOGLOBIN A1c 6.3 % (4.0-6.0)
[2022-04-12 18:20] LABS: THYROID STIMULATING HORMONE 1.045 uIU/ML (0.55-4.78)
[2022-04-12 18:21] LABS: ALBUMIN 3.8 G/DL (3.2-5.2); ALKALINE PHOSPHATASE 91 U/L (46-116); ALT/SGPT 20 U/L (7.0-40); AST/SGOT 24 U/L (<34); BILIRUBIN,TOTAL 0.3 MG/DL (0.3-1.2); BLOOD UREA NITROGEN 13 MG/DL (9-23); CALCIUM LEVEL 9.8 MG/DL (8.3-10.6); CARBON DIOXIDE LEVEL 32 MMOL/L (20-31); CHLORIDE LEVEL 103 MMOL/L (98-107); CHOLESTEROL LEVEL 133 MG/DL (<200); CHOLESTEROL RISK RATIO 5.21 (<5); CREATININE FOR GFR 0.72 MG/DL (0.55-1.30); FREE T4 1.14 NG/DL (0.89-1.76); GLOMERULAR FILTRATION RATE > 60.0 (>45); GLUCOSE, FASTING 116 MG/DL (74-106); HDL CHOLESTEROL 25.5 MG/DL (>40); LDL CHOLESTEROL 70.5 MG/DL (<100); NON-HDL-C 108 MG/DL; POTASSIUM SERUM 4.7 MMOL/L (3.5-5.1); SODIUM LEVEL 140 MMOL/L (136-145); TOTAL PROTEIN 6.7 G/DL (5.7-8.2); TRIGLYCERIDES LEVEL 185 MG/DL (<150)
== END ==
LOC: M SFHCADAM 14:02
PROVIDERS: ATTEND Physician Assistant
DX: I21.3 ST elevation (STEMI) myocardial infarction of unspecified site (principal); I25.10 Atherosclerotic heart disease of native coronary artery without angina pectoris; J44.9 Chronic obstructive pulmonary disease, unspecified; E11.65 Type 2 diabetes mellitus with hyperglycemia

== ENCOUNTER → 2022-07-04 | Outpatient (CLI) | payer MEDICARE, MEDICAID | LOC: M ADAMS 14:12 | PROVIDERS: ATTEND Physician Assistant | DX: M85.88 Other specified disorders of bone density and structure, other site (principal); M51.36 Other intervertebral disc degeneration, lumbar region ==